=== PATIENT | female | born 1955 | race African-American/Black ===

== ENCOUNTER 2017-11-12 08:42 | Day surgery (SDC) | payer SELFPAY ==
[2017-11-12] MEDS ORDERED: Acetaminophen TAB* 325 MG PO ONE (09:13)
[2017-11-12] MEDS ORDERED: fentaNYL* 50 MCG/ML 2 ML VIAL (100 MCG VIAL) IV SLOW PU ONE ×2 (10:14→10:18)
[2017-11-12] MEDS ORDERED: NS 0.9% 1000 ML* 1,000 ML IV ONE (10:19)
--- NOTE | 2017-11-12 10:29 | ED ---
Upper Extremity Pain - HPI Summary HPI Summary: Patient is a 62-year-old female who presents to the emergency department for a right elbow injury. Patient states last night she tripped and hit elbow off of a glass table. Table did not break. No other injuries were sustained. Patient states she went to sleep and when she woke up this morning her arm was very painful and had difficulty extending elbow. She denies numbness, tingling or weakness to her arm. Symptoms are mild in severity. Movement makes symptoms worse. Rest makes symptoms better. - History of Current Complaint Chief Complaint: EDExtremityUpper Stated Complaint: RT ARM INJURY Time Seen by Provider: 11/12/17 09:09 Hx Obtained From: Patient - Allergies/Home Medications Allergies/Adverse Reactions: Allergies Allergy/AdvReac Type Severity Reaction Status Date / Time No Known Allergies Allergy Verified 11/12/17 08:46 Home Medications: Home Medications Brimonidine P 0.15%(NF) [Alphagan P 0.15%(NF)] 1 drop BOTH EYES BID 11/12/17 [ History Confirmed 11/12/17] PMH/Surg Hx/FS Hx/Imm Hx Previously Healthy: Yes Endocrine/Hematology History: Denies: Hx Sickle Cell Disease Cardiovascular History: Denies: Other Cardiovascular Problems/Disorders Respiratory History: Reports: Hx Asthma - COLD INDUCED Denies: Other Respiratory Problems/Disorders GI History: Denies: Other GI Disorders History: Denies: Other Problems/Disorders Musculoskeletal History: Reports: Hx Tendonitis - LEFT WRIST Sensory History: Reports: Hx Cataracts, Hx Contacts or Glasses - GLASSES, Hx Glaucoma - BILATERAL EYES Denies: Hx Hearing Aid Opthamlomology History: Reports: Hx Cataracts, Hx Contacts or Glasses - GLASSES , Hx Glaucoma - BILATERAL EYES Neurological History: Denies: Other Neuro Impairments/Disorders - Cancer History Hx Chemotherapy: No - Surgical History Surgery Procedure, Year, and Place: GLAUCOMA BOTH EYES, 2010 AND 2011, [facility] [place]. RIGHT KNEE, 1992, [facility] [place]. RIGHT EYE - 2012, [facility] [place]. LEFT [id number]-[facility] [place] Hx Anesthesia Reactions: No Infectious Disease History: No Infectious Disease History: Denies: Traveled Outside the [place] in Last 30 Days - Family History Known Family History: Positive: Hypertension - Social History Alcohol Use: Occasionally Substance Use Type: Reports: None Smoking Status (MU): Light Every Day Tobacco Smoker Amount Used/How Often: 2 CIGARETTES PER DAY X 20 YEARS Have You Smoked in the Last Year: Yes Review of Systems Positive: Other - Right elbow pain. Negative: Weakness, Paresthesia, Numbness All Other Systems Reviewed And Are Negative: Yes Physical Exam Triage Information Reviewed: Yes Vital Signs On Initial Exam: Initial Vitals Temp Pulse Resp BP Pulse Ox 97 F 88 14 127/76 95 11/12/17 08:46 11/12/17 08:46 11/12/17 08:46 11/12/17 08:46 11/12/17 08:46 Vital Signs Reviewed: Yes Appearance: Positive: Pain Distress - Pt. sitting on bed holding right elbow. Appears in pain but nontoxic. Skin: Positive: Warm, Dry Head/Face: Positive: Normal Head/Face Inspection Eyes: Positive: Normal Neck: Positive: Supple Musculoskeletal: Positive: Other - Swelling and pain to right elbow. Unable to access ROM. Good palpable radial pulse. Normal sensation to right UE. No wounds. No proximal or distal injuries. Neurological: Positive: Normal, CN Intact II-III Psychiatric: Positive: Affect/Mood Appropriate Diagnostics - Vital Signs Vital Signs Temp Pulse Resp BP Pulse Ox 11/12/17 08:46 97 F 88 14 127/76 95 - Laboratory Lab Statement: Any lab studies that have been ordered have been reviewed, and results considered in the medical decision making process. Course/Dx - Course Course Of Treatment: Pt. presenting for right elbow injury. Tylenol and xray ordered. Neurovascularly intact. Xray is showing a posterior dislocation without fracture, reading per radiology. Numerous attempts were made by Dr. Gomez and myself to reduce elbow without and with conscious sedation. Orthopedics, Dr. Peacock, was consulted and plans to take pt. to the OR for reduction. - Diagnoses Differential Diagnosis/HQI/PQRI: Positive: Contusion, Fracture (Closed), Strain , Sprain Provider Diagnoses: Posterior dislocation of elbow, closed Discharge - Sign-Out/Discharge Documenting (check all that apply): Discharge/Admit/Transfer - Discharge Plan Condition: Stable Disposition: ADMITTED TO [facility] Referrals: Giuliano Julian MD [Primary Care Provider] - - Billing Disposition and Condition Condition: STABLE Disposition: Admitted to [facility]
[2017-11-12] MEDS ORDERED: Midazolam* 1 MG/ML 5 ML VIAL (5 MG) ONE ×2 (11:05→15:50)
[2017-11-12] MEDS ORDERED: Flumazenil* 0.1 MG/ML 5 ML MDV ONE (11:05)
[2017-11-12] MEDS ORDERED: Naloxone* 0.4 MG/ML 1 ML VIAL ONE (11:05)
[2017-11-12] MEDS ORDERED: fentaNYL* 50 MCG/ML 2 ML VIAL (100 MCG VIAL) ONE ×3 (11:05→16:45)
--- NOTE | 2017-11-12 11:55 | RAD ---
INDICATION: Right elbow pain after a fall COMPARISON: None. TECHNIQUE: 3 views right elbow. REPORT: The humeral condyles are displaced anteriorly relative to the olecranon on the ulna. There is no radiographically visible fracture. There is a moderate elbow joint effusion. The bones are otherwise intact. IMPRESSION: The jugular is displaced anteriorly from the olecranon and there is a moderate joint effusion. No radiographically visible fracture is seen.
[2017-11-12 12:46] LABS: Hematocrit 37 % (35-47); Hemoglobin 12.2 g/dl (12.0-16.0); Mean Corpuscular HGB Conc 33 g/dl (31-36); Mean Corpuscular Hemoglobin 33 pg (27-31); Mean Corpuscular Volume 98 fL (80-97); Mean Platelet Volume 7.6 um3 (7.4-10.4); Platelet Count 249 10^3/ul (150-450); Red Blood Count 3.74 10^6/ul (4.0-5.4); Red Cell Distribution Width 13 % (10.5-15); White Blood Count 13.5 10^3/ul (3.5-10.8)
[2017-11-12 13:02] LABS: EGFR Non-African American 98.7 (>60)
[2017-11-12 13:04] LABS: INR 0.98 (0.77-1.02)
[2017-11-12] MEDS ORDERED: Propofol* 10 MG/ML 20 ML BTL IV PUSH ONE (15:52)
[2017-11-12] MEDS ORDERED: Ketorolac INJ* 30 MG/ML 1 ML VIAL ONE (15:52)
[2017-11-12] MEDS ORDERED: Lidocaine 2% PF * 5 ML VIAL ONE (15:53)
[2017-11-12] MEDS ORDERED: Midazolam* 1 MG/ML 2 ML VIAL (2 MG) ONE (16:24)
[2017-11-12] MEDS ORDERED: Bupivacaine 0.25% SDV* 30 ML ONE (16:35)
[2017-11-12] MEDS ORDERED: ceFAZolin 1 GM VIAL(*) ONE (16:39)
[2017-11-12] MEDS ORDERED: HYDROmorphone INJ* 1 MG/ML CARPUJECT SYRINGE IV PRN (17:28)
[2017-11-12] MEDS ORDERED: Ondansetron INJ* 2 MG/ML VIAL IV PRN (17:28)
[2017-11-12] MEDS ORDERED: Acetaminophen TAB* 325 MG PO PRN (17:28)
[2017-11-12] MEDS ORDERED: Naloxone* 0.4 MG/ML 1 ML VIAL IV PRN (17:28)
[2017-11-12] MEDS ORDERED: oxyCODONE TAB* 5 MG TAB PO PRN (17:28)
[2017-11-12 19:33] VITALS: BP 166/89
--- NOTE | 2017-11-12 20:34 | ED ---
Justino Mckeon Julia, scribed for Giuliano Gomez MD on 11/12/17 at 1019 . Progress - Progress Note Progress Note: This patient is a 62 year old F presenting to [facility] with a chief complaint of R elbow pain and limited ROM after falling and hitting her elbow on a table last night. Pain is 10/10 in severity. Denies head trauma, LOC, and neck pain. This patient is seen by LAURA Joaquin, planning to assist with reduction. Re-Evaluation - Re-Evaluation First Re-Evaluation Time: 10:15 Comment: Right elbow with swelling, deformity, and decreased ROM secondary to pain Course/Dx - Course Course Of Treatment: PROCEDURE NOTE: Procedural Sedation. Indications: right elbow dislocation. [place] Protocol: a timeout was performed and the correct patient and site were verified. Consent: The risks and benefits of monitored anesthesia care, including the risk of aspiration, deep sedation requiring airway management including possible intubation, nausea and vomiting and the risks of not performing the procedure, including severe pain and inability to complete the procedure, were all discussed with the patient. The alternatives of performing the procedure, including local anesthesia and IV analgesia, also discussed. The patient has a ride home available. ASA Class: II-mild systemic disease. Pre-anesthesia evaluation, including history, exam, and informed consent is documented in the ED note above. Monitoring: Continuous monitoring of heart rate, respiratory rate, pulse oximetry and ETCO2. Supplemental oxygen prior to and during procedure via nasal cannula. Resuscitation equipment available at the bedside during sedation. The patient received Versed and Fentanyl and dosages were recorded on the sedation form. The patient was recovered from the sedation without complication or incident. Patient returned to pre-sedation level of awareness. The monitoring was discontinued at this time. Post-anesthesia evaluation: right elbow dislocation. Respiratory function, cardiovascular function, temperature, and mental status did return to pre-anesthetic state. Pain is controlled. Unable to reduce that dislocation therefore Ceferino Joaquin will contact the orthopedics surgeons for further assessment workup. - Diagnoses Provider Diagnoses: Posterior dislocation of elbow, closed Discharge - Sign-Out/Discharge Documenting (check all that apply): Discharge/Admit/Transfer - Discharge Plan Condition: Stable Disposition: ADMITTED TO [facility] - Billing Disposition and Condition Condition: STABLE Disposition: Admitted to [facility] The documentation as recorded by the Justino ramon Julia accurately reflects the service I personally performed and the decisions made by me, Giuliano Gomez MD.
--- NOTE | 2017-11-14 11:12 | RAD ---
CPT II Codes: G9500 INDICATION: Dislocated elbow TECHNIQUE: Intraoperative fluoroscopy was provided during reduction of dislocated right elbow. FINDINGS: 3 spot films depict anatomic alignment of the right elbow.. Fluoroscopy time: 11 seconds IMPRESSION: As above.
--- NOTE | 2017-11-14 14:02 | OP ---
OPERATIVE REPORT: DATE OF OPERATION: 11/12/17 DATE OF : 51 SURGEON: Linus Peacock MD CLEARING HOUSE CLERK: LAURA Estrella An senior office assistant was needed for the procedure to aid in positioning of the arm and retraction. ANESTHESIOLOGIST: Dr. Menendez. ANESTHESIA: General. PRE-OP DIAGNOSIS: Right elbow posterior fracture dislocation. POST-OP DIAGNOSIS: Right elbow posterior fracture dislocation. OPERATIVE PROCEDURE: 1. Open reduction right elbow fracture dislocation with removal of interposed coronoid tip fracture, loose body. 2. Right elbow lateral collateral ligament repair. ESTIMATED BLOOD LOSS: 2 mL. COMPLICATIONS: None. FINDINGS: There was an olecranon tip fracture that was trapped in the joint. The capsule was tight. It took quite a bit of release to get the joint reduced. After it was reduced, it was actually kallie te stable. Once the lateral collateral ligament was repaired, it was very stable. DESCRIPTION OF PROCEDURE: Anamaria was seen in the preoperative holding area. The correct site, side , and procedure were identified. We came back to the operating room where anesthesia was sedated and a closed reduction maneuver was performed. It was then converted to general anesthesia and she was c ompletely relaxed and then I still could not get the joint reduced. We, therefore, prepped and drape d in the arm in the usual fashion. I made a lateral incision centered over the lateral epicondyle, dissection was carried down, full-thi ckness flaps were raised off the fascia. I released the soft tissue along the anterior margin of the distal humerus and then extending just anterior to the equator of the lateral epicondyle. Dissectio n was carried down, the supinator tissue was carefully released so as to not lacerate the posterior i nterosseous nerve. The annular ligament was incised. I developed a view of the anterior joint. I m paige sure there was no interposed soft tissue. I made sure the capsule was in button hole. Things lo oked good there. I then came posterior and released the tissue off the posterior margin of the radia l aspect of the distal humerus. The ulnar humeral joint was seen. There was interposed coronoid tip fragment sitting in the olecranon fossa. In the olecranon, I did put a pituitary in and I removed t hat. I then tried to reduce the joint, it was still very tight. I released some more soft tissue. F inally, I was able to get it to pop back into place. It was actually fairly stable, in full extensio n it would dislocate. I went ahead and took a 2-0 drill bit and made drill tunnels from the origin o f the lateral collateral ligament, went out the anterior distal humerus, went out the posterior dista l humerus. I whip stitched a #2 FiberWire into the lateral collateral ligament. I then brought one limb out of the anterior drill tunnel, one out of the posterior drill tunnel. I pulled appropriate t ension and tied it off over the lateral distal humerus. This provided very tight excellent soft tiss ue repair. Everything was irrigated out. The fascia was closed with 0-Vicryl suture. Skin was close d with 4-0 Monocryl and Steri-Strips. Everything was infiltrated with 0.25% Marcaine. A long-arm sp lint with lateral buttress was applied to the elbow in 90 degrees of flexion. Tourniquet was deflate d. She was woken up and taken to the recovery room in stable condition. [id number]/[facility] #: [id number]
== END 2017-11-12 19:36 | disposition home or self-care (01) ==
LOC: ED 08:42 → OR 15:01 → OREAST 15:01 → OR 19:36
PROVIDERS: ATTEND Orthopaedic Surgery Hand Surgery
DX: S52.041A Displaced fracture of coronoid process of right ulna, initial encounter for closed fracture (principal); S53.441A Ulnar collateral ligament sprain of right elbow, initial encounter; W18.49XA Other slipping, tripping and stumbling without falling, initial encounter; Y92.9 Unspecified place or not applicable; Z72.0 Tobacco use; M19.90 Unspecified osteoarthritis, unspecified site
CPT/HCPCS: 36415; 76001; 80053; 85027; 85610; 99284; A9270-GY; J0690; J1885; J2250; J2310; J2704; J3010